=== PATIENT | female | born 1960 | race Caucasian/White ===

== ENCOUNTER → 2017-09-07 11:51 | Outpatient (CLI) | payer OTHER, SELFPAY ==
--- NOTE | 2017-09-07 12:15 | EMB_PTH ---
PATIENT: MALACHI LO LOC: [facility] U#:[id number] AGE/SX: 65/F ROOM: RE09/07/[address]: Dr. Jim Aquino MD : 1960 BED: DIS: SPEC #: [id number] RECD: 09/08/17 11:19 STATUS: RUBEN JULIANNA #: [id number] YONG: 09/07/17 12:[address]: Jim Aquino DEPT: SURGICAL PATHOLOGY RECD BY: Hallie Andrade ENTERED: 09/08/17 12:31 SP TYPE: ENDOM BX/C MAXIMUS DR: BAN Piedra Tissues: Endometrium, NOS Procedures: Surgery Specimen Level IV HEADER OPERATION: Endometrial biopsy PRE-OP DIAGNOSIS: Postmenopausal bleeding TISSUE SUBMITTED: Endometrial biopsy MICROSCOPIC DIAGNOSIS Endometrium, biopsy: Weakly proliferative mildly disordered proliferative endometrium. AM:lawrence 09/09/17 MICROSCOPIC DESCRIPTION Slides are reviewed. GROSS DESCRIPTION Received in fixative is one container labeled with the patient's name and designated endometrial biopsy. The specimen consists of multiple irregular fragments of light to dark rees soft tissue that in aggregate measure 2.5 x 1 x 0.1 cm. The specimen is totally submitted in one cassette. / AM:lawrence 09/08/17 TC:5 CPT: 13007
== END ==
PROVIDERS: Family Provider Physician Assistant; PCP Physician Assistant; Visit Provider Obstetrics & Gynecology
DX: N95.0 Postmenopausal bleeding (principal)
CPT/HCPCS: 88305

== ENCOUNTER → 2019-05-25 16:26 | Outpatient (CLI) | payer OTHER, SELFPAY ==
--- NOTE | 2019-05-25 16:35 | RAD_ITS ---
STUDY: X-RAY - LUMBAR SPINE REASON FOR EXAM: Female, 59 years old. Low back pain radiating to right leg TECHNIQUE: 2 view(s) of the lumbar spine were obtained. COMPARISON: February 24, 2017 FINDINGS: Normal lumbar lordosis. There is no substantial scoliosis. There is a normal alignment of the vertebrae. No evidence for acute fracture or subluxation.. Mild multilevel disc space narrowing and endplate spurring. The soft tissue structures are unremarkable. No significant change since prior exam RAD/Lumbar Spine 2 or 3 Views IMPRESSION: Degenerative changes. No evidence for acute fracture Electronically Signed: Rolan Zamora MD at 22:57 EST , Service support ,
== END ==
PROVIDERS: Family Provider Physician Assistant; PCP Physician Assistant; Referring Provider Anesthesiology Pain Medicine; Visit Provider Anesthesiology Pain Medicine
DX: M54.5 Low back pain (principal)
CPT/HCPCS: 72100

== ENCOUNTER → 2020-09-06 14:25 | Outpatient (CLI) | payer OTHER, SELFPAY ==
--- NOTE | 2020-09-06 14:29 | RAD_ITS ---
STUDY: X-RAY - PELVIS REASON FOR EXAM: Female, 60 years old. PAIN TECHNIQUE: One view of the pelvis was obtained. COMPARISON: None. FINDINGS: There is a non-specific bowel gas pattern. Normal visualized soft tissue structures. Normal bilateral iliac wings, sacroiliac joints and visualized sacrum. Normal visualized bilateral superior and inferior pubic rami. There is narrowing with sclerosis of the pubic symphysis. Normal ischial tuberosities. Normal visualized right femoral head. Normal right acetabulum. Normal right hip joint. Normal visualized left femoral head. Normal left acetabulum. Normal left hip joint. RAD/Pelvis 1 or 2 Views IMPRESSION: There is narrowing of the symphysis pubis with sclerosis. Electronically Signed: Tahir Conn MD at 14:40 EDT , Service support ,
[2020-09-06 17:23] LABS: Absolute Lymphocyte Count 2.45 X10^3/uL (0.83-4.51); Absolute Neutrophil Count 2.8 X10^3/uL (2.0-7.7); Basophil# 0.04 X10^3/uL; Basophil% 0.7 % (0-1); Eosinophil# 0.12 X10^3/uL; Hematocrit 43.7 % (37-47); Hemoglobin 13.7 g/dL (12.0-15.0); Lymphocyte # 2.45 X10^3/ul (4.0); Lymphocyte % 41.2 % (19-41); Mean Corp Hgb Conc 31.4 g/dL (32-36); Mean Corpuscular Hgb 26.3 pg (27.0-32.0); Mean Platelet Vol. 9.5 fl (6.2-12.0); Monocyte# 0.56 X10^3/uL; Monocyte% 9.4 % (0-10); NRBC Flagged by Analyzer 0 % (0-5); Neutrophil # 2.76 X10^3/uL (2.7-7.7); Neutrophil % 46.4 % (47-70); Platelet Count 343 K/mm3 (150-450); RBC Distribution Width CV 14.8 % (11.6-14.6); RBC Distribution Width SD 45.4 fl (35.1-43.9)
[2020-09-06 17:56] LABS: Erythrocyte Sedimentation Rate 33 mm/hr (0-30)
[2020-09-06 18:03] LABS: ALB/GLOB Ratio 0.8 RATIO (0.9-2.4); AST(SGOT) 16 U/L (15-37); Alanine Aminotransfer ALT/SGPT 25 U/L (13-56); Albumin, Serum 3.2 g/dL (3.2-5.0); Alkaline Phosphatase 126 U/L (45-117); Anion Gap 8 (5-15); BUN 10 mg/dL (7-18); BUN/Creat Ratio 14.4 RATIO (10-20); Calcium,Total 8.7 mg/dL (8.5-10.1); Chloride 104 mmol/L (98-107); Creatinine, Serum 0.69 mg/dL (0.55-1.02); EST Glomerular Filtration Rate 92 mL/min (>60); Est Glom Filt Rate - Afr Amer 112 mL/min (>60); Globulin 4.2 g/dL (2.2-4.2); Glucose 96 mg/dL (74-106); Potassium 3.4 mmol/L (3.5-5.1); Protein, Total 7.4 g/dL (6.4-8.2); Rheumatoid Factor < 10.0 IU/mL (<15); Sodium Level 141 mmol/L (136-145)
[2020-09-09 08:52] LABS: Hepatitis B Surface Antibody Non-Reactive; Hepatitis B Surface Antigen Non-Reactive (Nonreactive); Hepatitis C Antibody Non-Reactive (Nonreactive)
[2020-09-09 12:28] LABS: ANTINUCLEAR ANTIBODIES DIRECT Negative (Negative)
[2020-09-10 08:52] LABS: CCP IgG Antibodies 5 units (0-19); Hepatitis B Core AB IgM Negative (Negative)
== END ==
PROVIDERS: PCP Physician Assistant; Referring Provider Internal Medicine Rheumatology; Visit Provider Internal Medicine Rheumatology
DX: M06.4 Inflammatory polyarthropathy (principal); M79.7 Fibromyalgia; M47.897 Other spondylosis, lumbosacral region; M50.30 Other cervical disc degeneration, unspecified cervical region; J30.9 Allergic rhinitis, unspecified; F32.9 Major depressive disorder, single episode, unspecified; E78.5 Hyperlipidemia, unspecified; Q45.3 Other congenital malformations of pancreas and pancreatic duct
CPT/HCPCS: 36415; 72170; 80053; 85025; 85652; 86038; 86140; 86200; 86431; 86705; 86706; 86803; 87340

== ENCOUNTER → 2022-11-13 | Outpatient (CLI) | payer OTHER, SELFPAY ==
--- NOTE | 2022-11-15 06:49 | BRONCHALL ---
Bronchoprovocation Challenge Bronchoprovocation Challenge Bronchoprovocation Challenge: INTRODUCTION: The patient is a 62-year-old female who presents for a bronchoprovocation inhalation challenge secondary to a diagnosis of chronic cough. INTERPRETATION: Initial spirometry did not show any large airways obstructive ventilatory defect. The patient was then given progressively increasing doses of methacholine in a standardized fashion. At no point during testing did the patient's FEV1 level drop to the threshold criteria to be considered a positive test. IMPRESSION: Negative methacholine inhalation challenge.
== END | disposition home or self-care (01) ==
LOC: PSN 10:20
PROVIDERS: PCP Physician Assistant; Referring Provider Internal Medicine Critical Care Medicine; Visit Provider Internal Medicine Critical Care Medicine
DX: R05.3 Chronic cough (principal)
CPT/HCPCS: 94070; 95070; J3490; J7674

== ENCOUNTER → 2023-01-06 | Outpatient (CLI) | payer OTHER, SELFPAY | END | disposition home or self-care (01) | LOC: SL 19:49 | PROVIDERS: PCP Physician Assistant; Referring Provider Nurse Practitioner Acute Care; Visit Provider Nurse Practitioner Acute Care | DX: G47.10 Hypersomnia, unspecified (principal) | CPT/HCPCS: 95810 ==

== ENCOUNTER → 2023-01-28 | Outpatient (CLI) | payer OTHER, SELFPAY | END | disposition home or self-care (01) | LOC: SL 20:26 | PROVIDERS: PCP Physician Assistant; Referring Provider Nurse Practitioner Acute Care; Visit Provider Nurse Practitioner Acute Care | DX: G47.33 Obstructive sleep apnea (adult) (pediatric) (principal) | CPT/HCPCS: 95811 ==

== ENCOUNTER → 2023-05-26 | Outpatient (CLI) | payer OTHER, SELFPAY | END | disposition home or self-care (01) | LOC: SL 11:34 | PROVIDERS: PCP Physician Assistant; Visit Provider Nurse Practitioner Acute Care | DX: Z00.00 Encounter for general adult medical examination without abnormal findings (principal) ==

== ENCOUNTER → 2024-12-18 | Outpatient (CLI) | payer OTHER, SELFPAY | END | disposition home or self-care (01) | PROVIDERS: PCP Physician Assistant; Referring Provider Anesthesiology Pain Medicine; Visit Provider Anesthesiology Pain Medicine | DX: M54.9 Dorsalgia, unspecified (principal) | CPT/HCPCS: 72040; 72100 ==

== ENCOUNTER → 2025-02-08 | Outpatient (CLI) | payer OTHER, SELFPAY | END | disposition home or self-care (01) | LOC: SL 13:05 | PROVIDERS: PCP Physician Assistant; Visit Provider Nurse Practitioner Acute Care | DX: Z00.00 Encounter for general adult medical examination without abnormal findings (principal) ==